=== PATIENT | male | born 1965 | race Caucasian/White ===

== ENCOUNTER 2016-11-16 05:16 | Inpatient (IN) | payer OTHER ==
[2016-11-01 12:14] LABS: URINE BILIRUBIN 1+ (Negative); URINE BLOOD NEGATIVE (Negative); URINE COLOR YELLOW; URINE GLUCOSE-RANDOM* NEGATIVE (Negative); URINE KETONES TRACE (Negative); URINE LEUKOCYTES-REFLEX NEGATIVE (Negative); URINE PROTEIN (DIPSTICK) TRACE (Negative); URINE SPECIFIC GRAVITY >= 1.030 (1.003-1.035); URINE UROBILINOGEN 0.2 E.U./dl (0.2-1.0)
[2016-11-01 12:16] LABS: HEMATOCRIT 41.4 % (42.0-52.0); MCH 29.9 pg (26.0-34.0); MCHC 33.8 g/dL (28.0-37.0); MCV 88.5 fL (80.0-100.0); RBC 4.67 mil/uL (4.50-6.00); RDW 12.8 % (10.5-14.5); WBC 6.4 thou/uL (4.0-11.0)
[2016-11-01 12:24] LABS: ICTOTEST (BILI CONFIRMATORY) Negative (Negative)
[2016-11-01 12:30] LABS: PROTIME 10.7 Seconds (9.3-11.4)
[2016-11-01 12:33] LABS: ALBUMIN 3.9 g/dL (3.4-5.0); CALCIUM 9.3 mg/dL (8.5-10.1); POTASSIUM 3.8 mmol/L (3.5-5.1)
[~2016-11-16] VITALS: Ht 188 cm; Wt 137.9 kg
--- NOTE | ~2016-11-16 | EKG ---
[address] [address] ELECTROCARDIOGRAM REPORT Name: SUSANA MCWILLIAMS Room #: PRE IN M.R.#: [id number] Admission: Attend Phys: Jewel Angel MD Discharge: Date of : 67 Report #: [id number] THIS REPORT FOR: //name// [facility] Test Date: 2016-11-01 Test Time: 11:47:06 Pat Name: SUSANA MCWILLIAMS Department: Room: Gender: Area Secretary: Rajinder ORDONEZ : 1965 Requested By: Jewel Angel Order Number: [id number] MD: Jaret Vincent Measurements Intervals [place] Rate: 72 P: 39 PA: 178 QRS: 12 QRSD: 103 T: 23 QT: 431 QTc: 472 Interpretive Statements Sinus rhythm Baseline wander in lead(s) V4,V5,V6 No previous ECG available for comparison Electronically Signed On 11-01-2016 15:44:09 [employer]IE BU[employer]ER by Jaret Vincent [email or web address] <ELECTRONICALLY SIGNED> By: Jaret Vincent MD 11/01/16 1544 1147 1147 Jaret Vincent MD /KARON
--- NOTE | ~2016-11-16 | H ---
[facility] [address] [place] [address] HISTORY AND PHYSICAL Name: SUSANA MCWILLIAMS Room #: 534-P DIS IN M.R.#: [id number] Admission: 11/16/16 Attend Phys: Jewel Angel MD Discharge: 11/18/16 Date of : 67 Report #: [id number] THIS REPORT FOR: //name// For History and Physical, please see office documentation/handwritten note in the patient's medical record. <ELECTRONICALLY SIGNED> By: Jewel Angel MD 11/21/16 2244 0000 1448 Jewel Angel MD /nt
--- NOTE | ~2016-11-16 | O ---
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 PROCEDURE: Left hip total hip arthroplasty. SURGEON: Jewel Angel M.D. ATHLETIC EVENTS SCORER: Mich Plata, nurse practitioner. INDICATIONS FOR ATHLETIC EVENTS SCORER: During the course of operation, extensive manipulation, retraction and limb positioning was required. This was especially important due to the patient's size, which resulted in significantly increased operating room time. ANESTHETIC: General. INDICATIONS: See hospital history and physical. IMPLANTS UTILIZED: We used a Eldridge hip system. We used a Secur-Fit Max hip stem, 127-degree neck angle, size 9. We used a ceramic 36 outer diameter +7.5 femoral head. We used a Tritanium hemispherical solid back shell, 56 outer diameter with a Trident X3 elevated rim insert. DESCRIPTION OF PROCEDURE: After adequate general anesthesia had been obtained, the patient was placed in a lateral decubitus position. Left hip and lower extremity were prepped and draped in the usual meticulous sterile fashion. Posterolateral incision was made in the hip. subQ divided sharply. Hemostasis obtained with electrocautery. IT band and gluteal fascia were divided. This layer was retracted with a Charnley retractor. Hip was internally rotated. The piriformis and the external rotators were detached at their insertion, tagged and retracted posteriorly. Capsular incision was made and likewise was tagged and retracted posteriorly. The hip was then dislocated. Soft tissue was removed from the base of the femoral neck. Starter awl was placed at the base [address] [address] OPERATIVE REPORT Name: SUSANA MCWILLIAMS Room #: 534-P DIS IN M.R.#: [id number] Admission: 11/16/16 Attend Phys: Jewel Angel MD Discharge: 11/18/16 Date of : 67 Report #: [id number] neck and advanced to the canal. Canal was sequentially reamed to a size 9. Neck osteotomy was performed. Attention was directed to the acetabulum. It was circumferentially exposed. He had calcified labrum, which was loose at the periphery of the acetabulum. This was excised meticulously. The acetabulum was then sequentially reamed to a size 54. We got a good press fit with the 54 trial. So, we irrigated it copiously, reamed to a 55, irrigated copiously once again and then placed a shell in about 45 degrees of abduction and 20 degrees of anteversion. It was irrigated copiously. A cap screw placed and the liner was placed in the elevated portion posteriorly. Attention was redirected to the femur. The femur was sequentially broached to a size 9. Excellent torsional stability was obtained. We did trial reduction. Because of the medialization of the patient's acetabulum as it was shallow preoperatively, we elected to try the offset neck, which seemed to give us better stability, parameters and less impingement. The +7.5 seemed to give us the best stability parameters while not lengthening it extensively. The trial components were then removed. Hip was irrigated copiously. The stem was impacted into place, the head was impacted in place and the hip was reduced once again. At this time, the hip was irrigated copiously. Capsule and external rotators were reattached to the trochanter by placing drill holes in the trochanter, placing sutures through the drill holes and tying them over a bone bridge. The drains were placed deep and superficial. The IT band and gluteal fascia was closed with combination of interrupted [id number] #1 Vicryl as well as a running #1 Tevdek. SubQ closed in multiple layers due to the patient's size with 2-0 Monocryl and skin closed with bela. Prevena dressing applied. <ELECTRONICALLY SIGNED> By: Jewel Angel MD 11/21/16 2244 1311 1338 Jewel Angel MD /nt
[~2016-11-16 05:16] MED LIST: CELEBREX 200 M200 M1 PO; CELEXA20 MG PO; HYDROCHLOROTHIA25 M1 PO; HYZAAR 50-12.51 EACH PO; NEURONTIN600 MG PO; PERCOCET 10-321 EACH PO
[2016-11-17 03:32] LABS: HEMATOCRIT 35.4 % (42.0-52.0); MCH 29.9 pg (26.0-34.0); MCHC 33.8 g/dL (28.0-37.0); MCV 88.5 fL (80.0-100.0); RDW 13.1 % (10.5-14.5); WBC 12.4 thou/uL (4.0-11.0)
[2016-11-18 05:20] LABS: HEMATOCRIT 30.5 % (42.0-52.0); HEMOGLOBIN 10.4 gm/dL (14.0-18.0); MCH 30.4 pg (26.0-34.0); MCHC 34.2 g/dL (28.0-37.0); MCV 88.9 fL (80.0-100.0); RBC 3.43 mil/uL (4.50-6.00); RDW 13.4 % (10.5-14.5); WBC 9.3 thou/uL (4.0-11.0)
[2016-11-18] MEDS ORDERED: XARELTO10 MG PO (06:39)
== END 2016-11-18 12:40 | disposition home health service (06) | DRG 470 ==
LOC: 5S 05:16 → TBA 05:16 → PRE 09:02 → 5S 14:55
PROVIDERS: Orthopaedic Surgery
PROC: 0SRB03Z Replacement of Left Hip Joint with Ceramic Synthetic Substitute, Open Approach (ICD-10-PCS; principal; 2016-11-16)
DX: M16.12 Unilateral primary osteoarthritis, left hip (principal); M87.852 Other osteonecrosis, left femur; Z68.41 Body mass index [BMI] 40.0-44.9, adult; D72.829 Elevated white blood cell count, unspecified; I10 Essential (primary) hypertension; F32.9 Major depressive disorder, single episode, unspecified; G47.33 Obstructive sleep apnea (adult) (pediatric); E66.01 Morbid (severe) obesity due to excess calories; Z87.891 Personal history of nicotine dependence
CPT/HCPCS: 10785; 50010; 50101; 50382; 50414; 50455; 50612; 50855; 50939; 50953; 51412; 51771; 53000; 53078; 55388; 56521; 56525; 56527; 56530; 57095; 62110; 62900; 70005

== ENCOUNTER 2017-02-15 05:31 | Inpatient (IN) | payer OTHER ==
[2017-02-07 08:38] LABS: HEMATOCRIT 48.3 % (42.0-52.0); HEMOGLOBIN 16.3 gm/dL (14.0-18.0); MCHC 33.8 g/dL (28.0-37.0); MCV 88.7 fL (80.0-100.0); RBC 5.45 mil/uL (4.50-6.00); RDW 13.2 % (10.5-14.5); WBC 8.2 thou/uL (4.0-11.0)
[2017-02-07 08:41] LABS: URINE BILIRUBIN NEGATIVE (Negative); URINE BLOOD NEGATIVE (Negative); URINE COLOR YELLOW; URINE GLUCOSE-RANDOM* NEGATIVE (Negative); URINE KETONES NEGATIVE (Negative); URINE LEUKOCYTES-REFLEX NEGATIVE (Negative); URINE PROTEIN (DIPSTICK) TRACE (Negative); URINE SPECIFIC GRAVITY 1.025 (1.003-1.035); URINE UROBILINOGEN 0.2 E.U./dl (0.2-1.0)
[2017-02-07 08:47] LABS: ALBUMIN 4.3 g/dL (3.4-5.0); CALCIUM 9.3 mg/dL (8.5-10.1); CREATININE 0.9 mg/dL (0.7-1.3); POTASSIUM 4.4 mmol/L (3.5-5.1)
[2017-02-07 08:49] LABS: PROTIME 10.8 Seconds (9.3-11.4)
[~2017-02-15] VITALS: Ht 188 cm; Wt 138.3 kg
[2017-02-15] VITALS (8 sets, daily range): BP systolic 105–144; BP diastolic 62–101
--- NOTE | ~2017-02-15 | O ---
[facility] [address] OPERATIVE REPORT Name: SUSANA MCWILLIAMS Room #: 533-P ADM IN M.R.#: [id number] Admission: 02/15/17 Attend Phys: Jewel Angel MD Discharge: Date of : 67 Report #: [id number] THIS REPORT FOR: //name// CC: Jewel Casper DO DATE OF SERVICE: 02/15/2017 PREOPERATIVE DIAGNOSES: 1. Right hip degenerative joint disease, severe. 2. Morbid obesity, body mass index of 41.08. POSTOPERATIVE DIAGNOSES: 1. Right hip degenerative joint disease, severe. 2. Morbid obesity, body mass index of 41.08. PROCEDURE: Right total hip arthroplasty. SURGEON: Jewel Angel MD. ANESTHETIC: General. INDICATIONS: See hospital H and P. IMPLANTS UTILIZED: We used a Warden hip system Secur-Fit Max hip stem, 127 degree neck angle, size 9. We used a +5 neck, 36 outer diameter head with a Tritanium solid back shell, and a Trident X3 elevated rim insert. DESCRIPTION OF PROCEDURE: After adequate general anesthesia had been obtained, the patient was placed in the lateral decubitus position. The right hip and lower extremity were prepped and draped in the usual meticulous sterile fashion. Posterolateral incision was made to the hip, subQ divided sharply. Hemostasis was obtained with electrocautery. IT band and gluteal fascia was divided. This layer was retracted with a Charnley retractor. The hip was internally rotated. The external rotators were detached at their insertion, tagged, and retracted posteriorly. Capsular incision was made. It likewise was tagged and retracted posteriorly. The hip was then dislocated. Soft tissues were removed from the base of the neck. Starter awl placed at the base of the neck and advanced to the canal. Canal was sequentially reamed to a size 9. Neck osteotomy was performed. Attention was directed to the acetabulum. It was circumferentially exposed. Labrum was excised. We reamed sequentially to a size 54. We got a good press fit with 54 trial, so we irrigated copiously. with 55, irrigated [facility] [address] [address] OPERATIVE REPORT Name: SUSANA MCWILLIAMS Room #: 533-P ADM IN M.R.#: [id number] Admission: 02/15/17 Attend Phys: Jewel Angel MD Discharge: Date of : 67 Report #: [id number] copiously once again, and then implanted the shell in the appropriate orientation. A solid back shell was utilized. The cap screw was placed, and then the liner was in place. We elevated the portion posteriorly. Attention was redirected to the femur. Femur was exposed. A rag collector was used to sequentially broach to a size 9. Excellent torsional stability was obtained. Trial reduction with a +5 neck length, it helped to realign his leg lengths, as well as had good stability parameters. We then removed the trial components, irrigated copiously, and then put this permanent components into position. The head was then impacted into position. Hip was then reduced. We repaired the capsule and external rotators to the trochanter. Drains were placed deep and superficial. The IT band and gluteal fascia was closed with a combination of interrupted [id number] #1 Vicryl, as well as running #1 Tevdek. SubQ was closed in multiple layers due to the patient's size. It did took additional time with 2-0 Monocryl. Skin closed with bela. Sterile compressive dressing applied. We opted to use a Prevena dressing due to the patient's size. By: 0945 1317 Jewel Angel MD /norma
[~2017-02-15 05:31] MED LIST changes: +NORCO 10-325 T1 EACH PO; +XARELTO10 MG PO
[2017-02-16 04:00] VITALS: BP 134/70
[2017-02-16 05:44] LABS: HEMATOCRIT 38.9 % (42.0-52.0); HEMOGLOBIN 13.3 gm/dL (14.0-18.0); MCH 30.3 pg (26.0-34.0); MCHC 34.1 g/dL (28.0-37.0); MCV 88.8 fL (80.0-100.0); RBC 4.38 mil/uL (4.50-6.00); RDW 13.5 % (10.5-14.5); WBC 12.9 thou/uL (4.0-11.0)
[2017-02-16 08:00] VITALS: BP 138/77
[2017-02-16 11:26] VITALS: BP 138/77
[2017-02-16 13:51] VITALS: BP 138/77
[2017-02-16] MEDS ORDERED: XARELTO10 MG PO (15:18)
== END 2017-02-16 15:45 | disposition home or self-care (01) | DRG 470 ==
LOC: TBA 05:31 → 5S 05:31 → PRE 08:02 → 5S 10:54 → PRE 14:43 → 5S 02-16 15:45
PROVIDERS: Orthopaedic Surgery
PROC: 0SR90JZ Replacement of Right Hip Joint with Synthetic Substitute, Open Approach (ICD-10-PCS; principal; 2017-02-15)
DX: M16.11 Unilateral primary osteoarthritis, right hip (principal); Z68.41 Body mass index [BMI] 40.0-44.9, adult; E66.01 Morbid (severe) obesity due to excess calories; I10 Essential (primary) hypertension; F32.9 Major depressive disorder, single episode, unspecified; Z96.642 Presence of left artificial hip joint; J45.909 Unspecified asthma, uncomplicated; M48.06 Spinal stenosis, lumbar region; K08.409 Partial loss of teeth, unspecified cause, unspecified class; G47.30 Sleep apnea, unspecified; Z88.8 Allergy status to other drugs, medicaments and biological substances; Z98.52 Vasectomy status; Z87.891 Personal history of nicotine dependence; Z87.81 Personal history of (healed) traumatic fracture; Z79.899 Other long term (current) drug therapy; Z83.3 Family history of diabetes mellitus; Z82.49 Family history of ischemic heart disease and other diseases of the circulatory system
CPT/HCPCS: 10785; 50010; 50101; 50382; 50414; 50455; 50855; 50939; 50953; 51412; 51771; 53000; 55390; 56521; 56525; 56527; 56530; 56957; 57095; 62110; 62900; 70005